=== PATIENT | female | born 1990 | race Caucasian/White ===

== ENCOUNTER 2023-10-23 12:45 | Emergency (ER) | payer BC, SELFPAY ==
[2023-10-23 14:54] LABS: #Basophils 0.09 10x3/uL (0.0-0.2); #Eosinphils 0.11 10x3/uL (0.0-0.5); #Monocytes 0.49 10x3/uL (0.0-1.1); #Neutrophils 2.38 10x3/uL (1.5-8.4); %Basophils 1.7 % (0.0-2.0); %Eosinophils 2.1 % (0.0-6.0); %Lymphocytes 40.3 % (18.0-47.0); %Monocytes 9.5 % (0.0-10.0); %Neutrophils 46.2 % (40.0-75.0); Hematocrit 42.4 % (34.9-44.5); Hemoglobin 14.9 g/dL (12.0-15.5); Mean Corpuscular HGB CONC 35.1 g/dL (32.0-36.0); Mean Corpuscular Hemoglobin 34.2 pg (27.0-33.0); Mean Corpuscular Volume 97.2 fL (81.6-98.3); Mean Platelet Volume 8.7 fL (7.4-10.4); Platelet Count 375 10x3/uL (150-450); RBC Distribution Width 12.3 % (11.5-14.5); Red Blood Cell (RBC) Count 4.36 10x6/uL (3.90-5.03); White Blood Cell (WBC) Count 5.2 10x3/uL (3.5-10.5)
[2023-10-23 14:59] LABS: ALT (SGPT) 31 U/L (8-55); AST (SGOT) 25 U/L (5-34); Albumin 4.5 g/dL (3.5-5.0); Alkaline Phosphatase 33 U/L (40-110); Anion Gap 14 mmol/L (10-20); BUN (Urea Nitrogen) 11 mg/dL (7.0-18.7); Bilirubin, Total 0.6 mg/dL (0.2-1.2); Calc. Creatinine Clearance 0 mL/min (70-130); Calcium 9.7 mg/dL (7.8-10.44); Carbon Dioxide 22 mmol/L (22-29); Chloride 106 mmol/L (98-107); Estimated GFR 99; Glucose 80 mg/dL (70-105); Lipase 36 U/L (8-78); Potassium 4.2 mmol/L (3.5-5.1); Protein, Total 7.5 g/dL (6.0-8.3); Sodium 138 mmol/L (136-145)
[2023-10-23] MEDS ORDERED: Lidocaine 2% Viscous 10 mL, Alum & Magn 30 mL SSW SCH (16:00)
== END 2023-10-23 16:07 | disposition home or self-care (01) ==
LOC: CSHERS 12:45
DX: K29.00 Acute gastritis without bleeding (principal)
CPT/HCPCS: 36415; 80053; 83690; 85025; 93005